=== PATIENT | male | born 1995 ===

== ENCOUNTER 2018-09-13 18:19 | Outpatient (CLI) | payer OTHER | END 2018-09-13 18:38 | disposition home or self-care (01) | LOC: RAD 18:19 | DX: R06.09 Other forms of dyspnea (principal) ==

== ENCOUNTER 2020-07-28 16:08 | Outpatient (CLI) | payer OTHER | END 2020-07-28 16:17 | disposition home or self-care (01) | LOC: TOM 16:08 | DX: Q75.1 Craniofacial dysostosis (principal) ==